=== PATIENT | male | born 1950 | race Caucasian/White ===

== ENCOUNTER 2018-12-05 20:10 | Emergency (ER) | payer MEDICARE, OTHER ==
[~2018-12-05] VITALS: Ht 177.8 cm; Wt 99.3 kg
[~2018-12-05 20:10] MED LIST: ASPI81CH PO; CHOL10002 PO; EZET10-40 PO; FISH1000 PO; GLUCOSAMINE1000 MG; GLYB2.5 PO; LEVSOD150 PO; LOSA25 PO; LOSA50; METF500 PO; SIMV40 PO; SYNTHROID PO; TEMA7.5; TRIHYD253A PO; [UNRECOGNIZED DRUG - REMARK] PO
[2018-12-05 20:48] LABS: Source, Urine Clean Catch
[2018-12-05 20:51] LABS: Appearance, Urine Clear (Clear); Bilirubin, Urine Neg (Neg); Blood, Urine 4+ (Neg); Color, Urine Yellow (P-Yellow); Glucose Qualitative, Urine Neg (Neg); Ketones, Urine Neg (Neg); Leukocyte Esterase, Urine Neg (Neg); Nitrite, Urine Neg (Neg); Protein, Urine 2+ (Neg); Urobilinogen, Urine NORM (Normal)
[2018-12-05 20:57] LABS: Bacteria Not Seen /hpf; Squamous Epithelial Cells Few /hpf (Few); White Blood Cells, Urine Not Seen /hpf (0-5)
== END 2018-12-05 22:08 | disposition home or self-care (01) ==
LOC: ER 20:10
PROVIDERS: Physician Assistant
DX: R10.9 Unspecified abdominal pain (principal); Z79.899 Other long term (current) drug therapy; Z79.84 Long term (current) use of oral hypoglycemic drugs; Z79.82 Long term (current) use of aspirin; Z87.891 Personal history of nicotine dependence
CPT/HCPCS: 71046; 72070; 74176; 81001; 87081; 87430; 99284-25